=== PATIENT | male | born 1965 | race Caucasian/White ===

== ENCOUNTER 2018-04-19 20:35 | Observation (INO) | payer MEDICARE, OTHER ==
[2018-04-19 21:05] LABS: #Basophils 0.1 thou/uL (0.0-0.2); #Eosinphils 0.1 thou/uL (0.0-0.7); #Lymphocytes 2.2 thou/uL (1.20-3.40); #Monocytes 0.3 thou/uL (0.11-0.59); %Basophils 1.2 % (0.0-1.0); %Eosinophils 1.9 % (0.0-10.0); %Lymphocytes 28.7 % (21.0-51.0); %Monocytes 4.4 % (0.0-10.0); %Neutrophils 63.9 % (42.0-75.0); Hemoglobin 15.5 g/dL (14.0-18.0); Mean Corpuscular HGB CONC 33.8 g/dL (32.0-36.0); Mean Corpuscular Hemoglobin 29.6 pg (27.0-31.0); Mean Corpuscular Volume 87.5 fl (80.0-94.0); Mean Platelet Volume 6.3 fL (7.4-10.4); Platelet Count 286 thou/uL (130-400); RBC Distribution Width 12.8 % (11.5-14.5); Red Blood Cell (RBC) Count 5.24 mill/uL (4.70-6.10); White Blood Cell (WBC) Count 7.8 thou/uL (4.8-10.8)
[2018-04-19 21:12] LABS: PTT 25.5 SEC (22.9-36.1); Prothrombin Time 13.1 SEC (12.0-14.7)
[2018-04-19] MEDS ORDERED: Multivitamins, Adult 10 ML, Thiamine HCl 100 MG, Folic Acid 1 MG in Dextrose 5 %-0.45 %... IV SCH (21:15)
[2018-04-19 21:29] LABS: ALT (SGPT) 60 U/L (8-55); AST (SGOT) 54 U/L (5-34); Albumin 4.5 g/dL (3.5-5.0); Alkaline Phosphatase 62 U/L (40-150); Anion Gap 27 mmol/L (10-20); BUN (Urea Nitrogen) Less than 4 mg/dL (8.4-25.7); Bilirubin, Total 1.1 mg/dL (0.2-1.2); CK (CPK) 412 U/L (30-200); Calc. Creatinine Clearance 0 mL/min (70-130); Calcium 9.1 mg/dL (7.8-10.44); Carbon Dioxide 15 mmol/L (22-29); Chloride 91 mmol/L (98-107); Estimated GFR-MDRD Greater than 90; Globulin 3.2 g/dL (2.4-3.5); Glucose 148 mg/dL (70-105); Potassium 3.3 mmol/L (3.5-5.1); Protein, Total 7.7 g/dL (6.0-8.3); Sodium 130 mmol/L (136-145)
[2018-04-19 21:30] LABS: CKMB 3.7 ng/mL (0-6.6); Troponin I Less than 0.010 ng/mL (< 0.028)
--- NOTE | 2018-04-19 21:36 | RAD ---
CHEST ONE VIEW: 04/19/18 COMPARISON: 05/26/13. HISTORY: Pain. FINDINGS: Normal cardiac silhouette. Lungs and pleural spaces are clear. No pneumothorax or osseous abnormaliti es. IMPRESSION: No acute cardiopulmonary process. POS: [facility]
[2018-04-19] MEDS ORDERED: Pantoprazole 40 MG VIAL ONE (22:51)
[2018-04-19] MEDS ORDERED: Metoprolol Tartrate 5 MG/5 ML VIAL ONE ×2 (22:51)
[2018-04-19 23:02] LABS: Magnesium 1.4 mg/dL (1.6-2.6); Phosphorus 2.8 mg/dL (2.3-4.7)
[2018-04-19] MEDS ORDERED: Magnesium Sulfate 4 GM in Sodium Chloride 0.9% 250 ML 250 ML IVPB SCH (23:15)
[2018-04-20] MEDS ORDERED: Acetaminophen 325 MG TAB PO PRN ×2 (00:11→01:32)
[2018-04-20] MEDS ORDERED: Ondansetron HCl/PF 4 MG/2 ML Vial IVP PRN ×2 (00:11→01:32)
[2018-04-20] MEDS ORDERED: Ondansetron ODT 4 MG TAB SL PRN (00:11)
[2018-04-20] MEDS ORDERED: Sodium Chloride 0.9% 1,000 ML IV SCH (00:15)
[2018-04-20 00:27] VITALS: BMI 33.1
[2018-04-20 01:00] LABS: Lactic Acid 3.8 mmol/L (0.5-2.2)
[2018-04-20 01:08] LABS: Troponin I Less than 0.010 ng/mL (< 0.028)
[2018-04-20] MEDS ORDERED: cloNIDine 0.1 MG TAB PO PRN (01:29)
[2018-04-20] MEDS ORDERED: Nitroglycerin 0.4 MG TAB (25 Tab Bottle) PO PRN (01:32)
[2018-04-20] MEDS ORDERED: Milk Of Magnesia 30 ML UDCUP PO PRN (01:32)
[2018-04-20] MEDS ORDERED: Senokot 8.6 MG TAB PO PRN (01:32)
[2018-04-20] MEDS ORDERED: Ondansetron ODT 4 MG TAB PO PRN (01:32)
[2018-04-20] MEDS ORDERED: Calcium Carbonate 500 MG ChewTAB PO PRN (01:32)
[2018-04-20] MEDS ORDERED: Mag-Al 1200 mg/1200 mg/30 ML UDCUP PO PRN (01:32)
[2018-04-20] MEDS ORDERED: cloNIDine 0.1 MG TAB PO SCH (01:45)
--- NOTE | 2018-04-20 01:51 | HP ---
DATE OF ADMISSION: 04/19/2018 The patient was seen and examined on 04/19/2018. CHIEF COMPLAINT: Chest discomfort. HISTORY OF PRESENT ILLNESS: Patient is a 53-year-old male with chronic alcoholism, hypertension, hyp erlipidemia, and diabetes mellitus type 2, presented to the emergency room with chest discomfort that started earlier today. He also felt nauseous and had vomiting prior to the onset. 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 He vomited all the beer. He also had palpitations. His chest discomfort was dull in nature, mainly in the lower chest/epigastric area, moderate in intensity without any aggravating or relieving factor. He denies any lightheadedness or passing out. No rece nt immobilization, travel, fever, chills, cough, shortness of breath reported. No similar episodes i n the past. In the emergency room, his initial vital signs showed temperature 99.3 with respiration 21, pulse rat e of 141 with a blood pressure of 201/133 with O2 saturation 97% on room air. His EKG showed sinus t achycardia with heart rate of [address]-T wave changes. He received IV Protonix, 10 mg IV Lopressor, aspirin, IV fluids, and banana bag in the emergency room. His current blood pressu re is 185/89. Please note that patient has hearing and talking difficulty. History was obtained wit h the help of a sewage plant operator. PAST MEDICAL HISTORY: 1. Hypertension. 2. Diabetes mellitus type 2. 3. Hyperlipidemia. PAST SURGICAL HISTORY: Reviewed with the patient and none. ALLERGIES: Patient denies any drug allergies. CURRENT HOME MEDICATIONS: 1. Lisinopril 20 mg daily. 2. Zocor 20 mg at bedtime. 3. Metformin 1000 mg twice a day. SOCIAL HISTORY: The patient is a daily drinker as discussed above. He also smokes up to half pack a day. No drug use. FAMILY HISTORY: Negative for premature coronary artery disease. REVIEW OF SYSTEMS: The following complete review of systems was negative, unless otherwise mentioned in the HPI or below: Constitutional: Weight loss or gain, ability to conduct usual activities. Sk in: Rash, itching. Eyes: Double vision, pain. ENT/Mouth: Nose bleeding, neck stiffness, pain, te nderness. Cardiovascular: Palpitations, dyspnea on exertion, orthopnea. Respiratory: Shortness of breath, wheezing, cough, hemoptysis, fever or night sweats. Gastrointestinal: Poor appetite, abdom inal pain, heartburn, nausea, vomiting, constipation, or diarrhea. Genitourinary: Urgency, frequenc y, dysuria, nocturia. Musculoskeletal: Pain, swelling. Neurologic/Psychiatric: Anxiety, depressio n. Allergy/Immunologic: Skin rash, bleeding tendency. PHYSICAL EXAMINATION: VITAL SIGNS: As discussed above. HEENT: Head atraumatic, normocephalic. Sclerae are anicteric. Dry mucous membranes. No oral lesio n. NECK: Supple. No JVD appreciated. No carotid bruit. LUNGS: Clear to auscultation bilaterally. No wheezing, rales, or rhonchi. HEART: S1, S2 present, tachycardic, 2/6 systolic murmur over the mitral area. No heaves or pulsatio n. ABDOMEN: Soft, mild epigastric tenderness. No rebound, guarding, no costovertebral angle tenderness . EXTREMITIES: No edema or calf tenderness. NEUROLOGIC: Grossly nonfocal, moves all four extremities. PSYCHIATRY: Alert, awake, oriented x3. SKIN: Warm and dry. LYMPH NODES: No palpable lymph nodes in the neck. PERIPHERAL VASCULAR: Radial pulses palpable bilaterally. MUSCULOSKELETAL: No joint swelling or tenderness. SKIN: Warm and dry. LYMPH NODES: No palpable lymph nodes in the neck. LABORATORY FINDINGS: CBC showed WBC 7.8 with hemoglobin 15.5, hematocrit 45.8, platelet of 286,000. PT, INR, PTT normal range. Chemistries showed sodium 130, potassium 3.3, magnesium 1.4 with anion g ap of 27, bicarbonate of 15, creatinine 0.76. AST of 54, ALT 60. CK was 412. IMAGING: Chest x-ray by my review was negative for infiltrate. EKG by my review as discussed above. IMPRESSION: 1. Nausea, vomiting with chest discomfort. His symptoms are probably consistent with gastritis from daily alcohol use. We will also rule out acute coronary syndrome. We will continue IV PPIs. Patie nt will be monitored overnight. 2. Metabolic acidosis, probably secondary to dehydration with suspected starvation ketosis. We will also rule out lactic acidosis. We will check lactic acid, ketones and start him on IV fluids. We w ill recheck labs in a.m. 3. Chronic alcoholism. Patient was extensively counseled. 4. Electrolyte abnormalities. The patient has hyponatremia, hypokalemia, and hypomagnesemia. This will be replaced. 5. Abnormal liver function tests, probably secondary to daily alcohol use. 6. Sinus tachycardia, probably secondary to dehydration. Alcohol withdrawal is also a possibility. 7. Obesity with a body mass index of 33.1. 8. Hypertension with hypertensive urgency. The patient will be started on beta-blockers for sinus t achycardia. We will hold lisinopril due to dehydration. 9. Hyperlipidemia. We will hold statins due to abnormal liver function tests. 10. Diabetes mellitus type 2. We will hold metformin due to metabolic acidosis. We will start him on sliding scale. Plan of care was discussed with the patient in detail. He stated understanding.
[2018-04-20] MEDS: Lorazepam 1 MG TAB PO PRN ×3 (02:19→23:52)
[2018-04-20] MEDS ORDERED: Dextrose 50% Abboject 50 ML SYRINGE SLOW IVP PRN (04:33)
[2018-04-20] MEDS ORDERED: Insulin Regular 300 UNITS/3 ML VIAL SC PRN (04:33)
[2018-04-20] MEDS ORDERED: Dextrose 5% in Water 1,000 ML IV PRN (04:33)
[2018-04-20] MEDS: Insulin Regular 300 UNITS/3 ML VIAL SC PRN ×2 (06:08→18:00)
[2018-04-20] MEDS: D5 1/2 NS w/20 mEq KCL 1,000 ML IV SCH ×3 (06:10→14:51)
[2018-04-20] MEDS: Multivit, Therapeutic 1 TAB PO SCH (07:59)
[2018-04-20] MEDS: Aspirin 81 mg Enteric Coated Tablet PO SCH (07:59)
[2018-04-20] MEDS ORDERED: Aspirin 325 MG TAB PO SCH (08:00)
[2018-04-20] MEDS: Folic Acid 1 MG TAB PO SCH (08:00)
[2018-04-20] MEDS: Metoprolol Tartrate 25 MG TAB PO SCH ×2 (08:00→20:14)
[2018-04-20] MEDS: Pantoprazole 40 MG VIAL IVP SCH ×2 (08:00→20:16)
[2018-04-20] MEDS: cloNIDine 0.1 MG TAB PO SCH ×2 (08:00→20:14)
[2018-04-20 10:27] LABS: Lactic Acid 1.6 mmol/L (0.5-2.2)
[2018-04-20 10:33] LABS: Troponin I Less than 0.010 ng/mL (< 0.028)
[2018-04-20 10:38] LABS: #Eosinphils 0.2 thou/uL (0.0-0.7); #Lymphocytes 0.7 thou/uL (1.20-3.40); #Monocytes 0.2 thou/uL (0.11-0.59); #Neutrophils 3.2 thou/uL (1.40-6.50); %Basophils 0.3 % (0.0-1.0); %Eosinophils 4.4 % (0.0-10.0); %Lymphocytes 17.2 % (21.0-51.0); %Monocytes 4.6 % (0.0-10.0); %Neutrophils 73.5 % (42.0-75.0); Hemoglobin 14.6 g/dL (14.0-18.0); Mean Corpuscular HGB CONC 34.2 g/dL (32.0-36.0); Mean Corpuscular Hemoglobin 30.1 pg (27.0-31.0); Mean Platelet Volume 7.3 fL (7.4-10.4); Platelet Count 180 thou/uL (130-400); Red Blood Cell (RBC) Count 4.86 mill/uL (4.70-6.10); White Blood Cell (WBC) Count 4.3 thou/uL (4.8-10.8)
[2018-04-20 10:47] LABS: ALT (SGPT) 50 U/L (8-55); AST (SGOT) 43 U/L (5-34); Albumin 3.9 g/dL (3.5-5.0); Alkaline Phosphatase 52 U/L (40-150); Anion Gap 15 mmol/L (10-20); BUN (Urea Nitrogen) 4 mg/dL (8.4-25.7); CK (CPK) 350 U/L (30-200); Calc. Creatinine Clearance 163 mL/min (70-130); Carbon Dioxide 24 mmol/L (22-29); Chloride 97 mmol/L (98-107); Estimated GFR-MDRD Greater than 90; Globulin 3.1 g/dL (2.4-3.5); Glucose 258 mg/dL (70-105); Magnesium 2.9 mg/dL (1.6-2.6); Potassium 4.1 mmol/L (3.5-5.1); Sodium 132 mmol/L (136-145)
[2018-04-20] MEDS ORDERED: Lorazepam 0.5 MG TAB PO SCH (13:30)
[2018-04-20] MEDS ORDERED: ADENOSINE 60 MG/20 ML VIAL ONE (15:53)
--- NOTE | 2018-04-20 19:06 | NM ---
NUCLEAR MEDICINE CARDIAC STRESS TEST WITH EJECTION FRACTION 04/20/18 HISTORY: Chest pain. Palpitations. COMPARISON: Nuclear medicine stress test 2012. TECHNIQUE: Stress and rest performed after the intravenous administration of 28 and 9.5 millicuries technetium 9 9m Sestamibi, respectively. No infarct or ischemia. Normal wall motion. Calculated ejection fraction at 61%. IMPRESSION: Normal exam. POS: DANIELLA
[2018-04-21] MEDS: D5 1/2 NS w/20 mEq KCL 1,000 ML IV SCH ×2 (02:08→11:01)
[2018-04-21] MEDS: Insulin Regular 300 UNITS/3 ML VIAL SC PRN (05:03)
[2018-04-21] MEDS: Multivit, Therapeutic 1 TAB PO SCH (08:16)
[2018-04-21] MEDS: Metoprolol Tartrate 25 MG TAB PO SCH (08:16)
[2018-04-21] MEDS: Folic Acid 1 MG TAB PO SCH (08:16)
[2018-04-21] MEDS: Pantoprazole 40 MG VIAL IVP SCH (08:16)
[2018-04-21] MEDS: cloNIDine 0.1 MG TAB PO SCH (08:16)
[2018-04-21] MEDS: Aspirin 81 mg Enteric Coated Tablet PO SCH (08:16)
[2018-04-21 12:01] VITALS: BP 149/84; TEMP 98.5
--- NOTE | 2018-04-21 17:31 | DIS ---
DATE OF ADMISSION: 04/19/2018 DATE OF DISCHARGE: 04/21/2018 PRIMARY CARE PROVIDER: Jeff Lyn M.D. DISCHARGE DIAGNOSES: 1. Chest pain. 2. Hyponatremia. 3. Hypokalemia. 4. Hypomagnesemia. 5. Abnormal liver function tests. 6. Lactic acidosis. 7. Likely starvation ketoacidosis. 8. Rhabdomyolysis. CONDITION OF PATIENT ON THE DAY OF DISCHARGE: Stable. I assessed Mr. Ariza on the day of discharg e. He has no complaints. Vital signs are stable. S1 and S2 are heard, regular. Lungs are clear to auscultation bilaterally. DISCHARGE MEDICATIONS: Folic acid 1 mg daily, lisinopril 20 mg daily, metformin 1000 mg 2 times a da y, multivitamins 1 tablet daily, Zoloft 100 mg daily, Zocor 20 mg at bedtime, and thiamine 100 mg magdaleno ly. HOSPITAL COURSE: Mr. Ariza is a pleasant 53-year-old gentleman who was admitted to [facility] on observation status on 04/20/2018 for chest pain. He was also found to have mul tiple metabolic and electrolyte abnormalities. The abnormalities improved with intravenous hydration . He had a nuclear stress test, which was normal, with left ventricular ejection fraction of 61%. H e also had a normal D-dimer. His chest pain resolved and he had no recurrence. He is being discharged home in a stable condition. He had isolated transaminitis, which was likely secondary to rhabdomyolysis, which improved with hydr ation. Lactic acidosis, resolved with hydration. Hypokalemia, also resolved with replacement. Hypo magnesemia, resolved with magnesium replacement. His sodium improved to 132 on 04/20/2018 following intravenous fluids. Many thanks for allowing me to participate in your patient's care. Please feel free to contact me wi th any questions or concerns. DISCHARGE DESTINATION: Home.
== END 2018-04-21 12:56 | disposition home or self-care (01) ==
LOC: ERS 20:35 → 2SW 22:38
PROVIDERS: ADMIT Internal Medicine; ATTEND Internal Medicine
DX: R07.89 Other chest pain (principal); I10 Essential (primary) hypertension; E11.9 Type 2 diabetes mellitus without complications; E78.5 Hyperlipidemia, unspecified; F10.10 Alcohol abuse, uncomplicated; F17.210 Nicotine dependence, cigarettes, uncomplicated; R11.2 Nausea with vomiting, unspecified; E87.1 Hypo-osmolality and hyponatremia; E87.6 Hypokalemia; E83.42 Hypomagnesemia; I16.0 Hypertensive urgency; R94.5 Abnormal results of liver function studies; M62.82 Rhabdomyolysis; E87.2 Acidosis; E66.9 Obesity, unspecified; Z68.33 Body mass index [BMI] 33.0-33.9, adult; Z79.84 Long term (current) use of oral hypoglycemic drugs; Z79.899 Other long term (current) drug therapy
CPT/HCPCS: 71045; 78452; 80053; 82010; 82550 ×2; 82553; 82962 ×2; 83605; 83690; 83735 ×2; 83880; 84100; 84484 ×2; 85025; 85379; 85610; 85730; 93005; 93017; 94760 ×2; 96361 ×2; 96365; 96366 ×2; 96375; 96376 ×2; 97139 ×2; 99285; A9500; G0378; 36415; 36416; 84443; C9113; J0153; J1815; J3411; J3475; J7042; J7050

== ENCOUNTER 2018-04-23 08:22 | Emergency (ER) | payer MEDICARE, OTHER ==
[2018-04-23 09:19] LABS: #Eosinphils 0.1 thou/uL (0.0-0.7); #Lymphocytes 0.7 thou/uL (1.20-3.40); #Monocytes 0.3 thou/uL (0.11-0.59); #Neutrophils 3.9 thou/uL (1.40-6.50); %Basophils 0.9 % (0.0-1.0); %Lymphocytes 13.2 % (21.0-51.0); %Monocytes 5.9 % (0.0-10.0); Hemoglobin 15.8 g/dL (14.0-18.0); Mean Corpuscular HGB CONC 35.1 g/dL (32.0-36.0); Mean Corpuscular Hemoglobin 30.9 pg (27.0-31.0); Mean Corpuscular Volume 87.9 fl (80.0-94.0); Mean Platelet Volume 6.8 fL (7.4-10.4); Platelet Count 166 thou/uL (130-400); RBC Distribution Width 13.2 % (11.5-14.5); Red Blood Cell (RBC) Count 5.12 mill/uL (4.70-6.10)
[2018-04-23 09:42] LABS: CKMB 1.3 ng/mL (0-6.6); Troponin I Less than 0.010 ng/mL (< 0.028)
[2018-04-23 10:13] LABS: ALT (SGPT) 77 U/L (8-55); AST (SGOT) 67 U/L (5-34); Albumin 4.4 g/dL (3.5-5.0); Alkaline Phosphatase 59 U/L (40-150); Anion Gap 17 mmol/L (10-20); BUN (Urea Nitrogen) 6 mg/dL (8.4-25.7); Bilirubin, Total 0.9 mg/dL (0.2-1.2); Calc. Creatinine Clearance 0 mL/min (70-130); Calcium 9.1 mg/dL (7.8-10.44); Carbon Dioxide 21 mmol/L (22-29); Chloride 101 mmol/L (98-107); Estimated GFR-MDRD Greater than 90; Globulin 3.4 g/dL (2.4-3.5); Glucose 211 mg/dL (70-105); Potassium 3.6 mmol/L (3.5-5.1); Protein, Total 7.8 g/dL (6.0-8.3); Sodium 135 mmol/L (136-145)
--- NOTE | 2018-04-23 10:32 | RAD ---
PORTABLE CHEST 1 VIEW: Date: 04/23/18 Time: 1000 hours HISTORY: Palpitations. Dizziness. FINDINGS: Comparison made with exam of 04/19/18. The heart size is normal. The lungs are expanded without focal areas of consolidation, pneumothorax, jimmy pulmonary edema, or pleural effusions. IMPRESSION: No radiographic evidence of acute cardiopulmonary process. POS: [facility]
== END 2018-04-23 11:05 | disposition home or self-care (01) ==
LOC: ERS 08:22
DX: I49.3 Ventricular premature depolarization (principal); G47.00 Insomnia, unspecified; E11.9 Type 2 diabetes mellitus without complications; E78.5 Hyperlipidemia, unspecified; I10 Essential (primary) hypertension; F17.210 Nicotine dependence, cigarettes, uncomplicated; Z79.899 Other long term (current) drug therapy; Z79.84 Long term (current) use of oral hypoglycemic drugs
CPT/HCPCS: 36415; 71045; 80053; 82553; 84484; 85025; 93005

== ENCOUNTER 2018-06-12 00:10 | Inpatient (IN) | payer MEDICARE, OTHER ==
[2018-06-12] MEDS ORDERED: Ondansetron HCl/PF 4 MG/2 ML Vial ONE (00:50)
[2018-06-12 01:16] LABS: #Eosinphils 0.1 thou/uL (0.0-0.7); #Lymphocytes 1.1 thou/uL (1.20-3.40); #Monocytes 0.2 thou/uL (0.11-0.59); #Neutrophils 6.9 thou/uL (1.40-6.50); %Basophils 0.5 % (0.0-1.0); %Eosinophils 0.7 % (0.0-10.0); %Lymphocytes 13.3 % (21.0-51.0); %Monocytes 2.3 % (0.0-10.0); %Neutrophils 83.2 % (42.0-75.0); Hemoglobin 14.5 g/dL (14.0-18.0); Mean Corpuscular HGB CONC 35.1 g/dL (32.0-36.0); Mean Corpuscular Hemoglobin 30.8 pg (27.0-31.0); Mean Corpuscular Volume 87.6 fL (78.0-98.0); Mean Platelet Volume 6.1 fL (7.4-10.4); Platelet Count 269 thou/uL (130-400); RBC Distribution Width 13.6 % (11.5-14.5); White Blood Cell (WBC) Count 8.3 thou/uL (4.8-10.8)
[2018-06-12 01:33] LABS: ALT (SGPT) 76 U/L (8-55); AST (SGOT) 86 U/L (5-34); Albumin 4.4 g/dL (3.5-5.0); Alcohol 168 mg/dL (Less than 10); Alkaline Phosphatase 61 U/L (40-150); Anion Gap 22 mmol/L (10-20); BUN (Urea Nitrogen) Less than 4 mg/dL (8.4-25.7); Calc. Creatinine Clearance 0 mL/min (70-130); Calcium 8.8 mg/dL (7.8-10.44); Carbon Dioxide 19 mmol/L (22-29); Chloride 99 mmol/L (98-107); Estimated GFR-MDRD Greater than 90; Glucose 156 mg/dL (70-105); Lipase 23 U/L (8-78); Magnesium 1.4 mg/dL (1.6-2.6); Potassium 3.2 mmol/L (3.5-5.1); Protein, Total 7.4 g/dL (6.0-8.3); Sodium 137 mmol/L (136-145)
[2018-06-12 01:34] LABS: PTT 30.2 SEC (22.9-36.1)
[2018-06-12 01:40] LABS: INR-International Normal Ratio 1.1; Prothrombin Time 14.1 SEC (12.0-14.7)
[2018-06-12] MEDS ORDERED: Lorazepam 2 MG/ML VIAL ONE ×2 (01:47→05:27)
[2018-06-12 01:51] LABS: Bilirubin Negative (Negative); Blood, Urine Negative (Negative); Clarity CLEAR (Clear); Glucose, Urine (Dipstick) Negative (Negative); Leukocyte Negative (Negative); Nitrite Negative (Negative); Protein, Urine (Dipstick) Trace mg/dL (Neg-Trace); Specific Gravity, Urine 1.006 (1.002-1.036); Urobilinogen 0.2 mg/dL (0.2-1.0); pH, Urine 5.5 (5.0-9.0)
[2018-06-12] MEDS ORDERED: Potassium Chloride 40 MEQ in Sodium Chloride 0.9% 250 ML 250 ML IVPB SCH (02:00)
[2018-06-12] MEDS ORDERED: Piperacillin/Tazobactam 4.5 GM VIAL ONE (02:08)
[2018-06-12] MEDS ORDERED: Pantoprazole 80 MG, Admixture Fee 1 EACH in Sodium Chloride 0.9% 100 ML IVP SCH (04:00)
[2018-06-12 04:22] LABS: Lactic Acid 4.4 mmol/L (0.5-2.2)
[2018-06-12] MEDS ORDERED: Ondansetron HCl/PF 4 MG/2 ML Vial IVP PRN (06:25)
[2018-06-12] MEDS ORDERED: Ondansetron ODT 4 MG TAB SL PRN (06:25)
[2018-06-12] MEDS ORDERED: Magnesium Sulfate 2 GM in Sodium Chloride 0.9% 100 ML IVPB SCH (06:45)
[2018-06-12] MEDS ORDERED: Octreotide Acetate 50 MCG/ML AMP SLOW IVP SCH (06:45)
[2018-06-12 06:46] VITALS: BMI 33.3
[2018-06-12 07:11] LABS: INR-International Normal Ratio 1.1; Prothrombin Time 14.1 SEC (12.0-14.7)
[2018-06-12] MEDS: Dextrose 5 %-0.45 % NaCl 1,000 ML IV SCH ×2 (07:22→21:35)
[2018-06-12] MEDS ORDERED: Folic Acid 1 MG TAB PO SCH (09:00)
[2018-06-12] MEDS ORDERED: Non-Formulary Item 1 EACH (Sertraline Hcl [Zoloft] 100 MG) PO SCH (09:00)
[2018-06-12] MEDS ORDERED: Multivit, Therapeutic 1 TAB PO SCH (09:00)
--- NOTE | 2018-06-12 09:19 | RAD ---
RADIOGRAPH CHEST 1 VIEW: HISTORY: A 53-year-old male with cardiac arrhythmia, nausea, and vomiting. FINDINGS: There are no air space densities, pulmonary edema, pneumothorax, or cardiomegaly. The lateral costop hrenic angles are sharp. IMPRESSION: No acute cardiopulmonary findings. rosmery [] POS: DANIELAL
[2018-06-12] MEDS ORDERED: hydrALAZINE 20 MG/ML VIAL SLOW IVP SCH (10:15)
[2018-06-12] MEDS: Rosuvastatin 10 MG TAB PO SCH (10:18)
[2018-06-12] MEDS: Lisinopril 20 MG TAB PO SCH ×2 (10:18→12:16)
[2018-06-12] MEDS ORDERED: HumaLOG 300 UNITS/3 ML VIAL SC PRN (12:43)
[2018-06-12] MEDS ORDERED: Bisacodyl 5 MG TAB PO PRN (12:43)
[2018-06-12] MEDS ORDERED: Dextrose 5% in Water 1,000 ML IV PRN (12:43)
[2018-06-12] MEDS ORDERED: Dextrose 50% Abboject 50 ML SYRINGE SLOW IVP PRN (12:43)
--- NOTE | 2018-06-12 13:10 | HP ---
PRIMARY CARE PROVIDER: Jeff Lyn MD CHIEF COMPLAINT: Irregular heartbeat. HISTORY OF PRESENT ILLNESS: Mr. Ariza is a pleasant 53-year-old gentleman, who was seen at [facility] on 06/12/2018. Please note, patient is deaf. History was obtained through review of medical records and by communic ating with the patient in writing. The patient called EMS because he felt that his heart was beating irregularly. He started panicking. He reports having similar symptoms in the past. He also reports feeling nauseous. He reports vomi ting. Vomitus had black spots. REVIEW OF SYSTEMS: All other systems reviewed and found to be negative. PAST MEDICAL HISTORY: Alcohol abuse; hypertension; diabetes mellitus, type 2, and dyslipidemia. PAST SURGICAL HISTORY: None. FAMILY HISTORY: Negative for premature coronary artery disease. SOCIAL HISTORY: The patient drinks 12-pack daily. He smokes 1 pack of cigarettes a day. He denies any recreational drug use. He lives alone. PSYCHIATRIC HISTORY: Depression. ALLERGIES: No known drug allergies. CURRENT MEDICATIONS: Include Crestor 10 mg daily, metformin 1000 mg 2 times a day, sertraline 100 mg daily, aspirin 81 mg daily, lisinopril 20 mg daily. PHYSICAL EXAMINATION: GENERAL: Mr. Ariza is awake and alert, not in acute distress. VITAL SIGNS: He is afebrile. Pulse is 131. Blood pressure is 188/103. He is saturating 95% on marie m air while breathing 20 times a minute. He is obese, with a BMI of 33.4. EYES: No scleral icterus. No conjunctival pallor. ENT: Moist mucosal membranes, no oropharyngeal erythema or exudates. NECK: Supple, nontender, trachea is midline. RESPIRATORY: Accessory muscles of breathing are not active. Chest wall movements are symmetric bila terally. LUNGS: Clear to auscultation without wheeze, rhonchi, or crepitations. CARDIOVASCULAR: S1 and S2 are heard, tachycardic and regular. Peripheral pulses palpable. No carot id bruit, no pericardial rub. ABDOMEN: Soft, nontender, bowel sounds are heard, no hepatomegaly, no splenomegaly. MUSCULOSKELETAL: Power is 5/5 in all 4 extremities. NEUROLOGIC: Cranial nerves II-XII intact. Deep tendon reflexes are 2+. SKIN: No rashes or subcutaneous nodules. LYMPHATIC: No cervical lymphadenopathy. PSYCHIATRIC: Normal mood, normal affect, patient is oriented to person, place, and time. LABORATORY DATA: Mr. Ariza's labs and investigations were reviewed. I reviewed his electrocardiog seble, which shows sinus tachycardia, no ST changes to suggest an acute coronary syndrome. I also revi ewed his chest x-ray, which does not show any pulmonary infiltrates. He has normal white count, norm al hemoglobin of 14.5, normal platelet count, INR 1.1, normal sodium, decreased potassium of 3.2, dec reased carbon dioxide of 19, elevated anion gap of 22, elevated lactic acid level of 4.4, trending do wn from 5.5, normal calcium, decreased magnesium of 1.4, normal total bilirubin, elevated AST of 86, elevated ALT of 76, normal lipase and normal albumin. Urinalysis is positive for trace ketones. [facility] alcohol level was 168. ASSESSMENT AND PLAN: Mr. Ariza is a pleasant 53-year-old gentleman, who was seen at [facility] on 06/12/2018. His problem list includes: 1. Palpitations: Most likely secondary to sinus tachycardia. The etiology of sinus tachycardia is unclear. He reports having his last alcoholic drink last night. We will check TSH to rule out hyper thyroidism. We will also check a D-dimer to rule out pulmonary embolism. Patient will be admitted t o telemetry monitoring. Further workup depending on the outcome. 2. Gastrointestinal bleed: It is unclear whether patient had an actual gastrointestinal bleed. We will continue him on PPI drip and consult Gastroenterology service. His hemoglobin has been stable. We will recheck his H and H. 3. Hypokalemia: Replace potassium. 4. Hypomagnesemia: Replace magnesium. 5. Chronic alcohol abuse: Start folic acid, thiamine, and multivitamins. Start ASE protocol. 6. Dyslipidemia: Continue statin. 7. Diabetes mellitus, type 2: Start Accu-Cheks and insulin sliding scale. 8. Hypertension: Monitor vital signs, titrate antihypertensives as needed. LEVEL OF RISK: High. LEVEL OF COMPLEXITY: High. Many thanks for allowing me to participate in your patient's care. Please feel free to contact me wi th any questions or concerns.
[2018-06-12 13:44] LABS: Hemoglobin 15.2 g/dL (14.0-18.0)
[2018-06-12] MEDS ORDERED: Diazepam 5 MG TAB PO PRN (15:29)
[2018-06-12] MEDS ORDERED: Diazepam 5 MG TAB PO SCH (15:30)
[2018-06-12] MEDS ORDERED: Labetalol HCl 100 MG/20 ML VIAL SLOW IVP PRN (15:32)
[2018-06-12] MEDS: Labetalol HCl 100 MG/20 ML VIAL SLOW IVP PRN (15:52)
[2018-06-12] MEDS ORDERED: Simvastatin 20 MG TAB PO SCH (21:00)
[2018-06-12] MEDS: Nicotine 21 MG PATCH TD SCH (21:35)
[2018-06-12] MEDS: Atorvastatin Calcium 10 MG TAB PO SCH (21:35)
[2018-06-12 22:28] LABS: Hemoglobin 14.5 g/dL (14.0-18.0)
[2018-06-13 03:28] LABS: #Eosinphils 0.1 thou/uL (0.0-0.7); #Lymphocytes 1.1 thou/uL (1.20-3.40); #Monocytes 0.2 thou/uL (0.11-0.59); %Basophils 0.8 % (0.0-1.0); %Eosinophils 2.7 % (0.0-10.0); %Lymphocytes 19.8 % (21.0-51.0); %Monocytes 3.9 % (0.0-10.0); %Neutrophils 72.8 % (42.0-75.0); Hemoglobin 14.6 g/dL (14.0-18.0); Mean Corpuscular HGB CONC 34.6 g/dL (32.0-36.0); Mean Corpuscular Hemoglobin 30.7 pg (27.0-31.0); Mean Corpuscular Volume 88.8 fL (78.0-98.0); Mean Platelet Volume 6.3 fL (7.4-10.4); Platelet Count 167 thou/uL (130-400); RBC Distribution Width 13.5 % (11.5-14.5); Red Blood Cell (RBC) Count 4.77 mill/uL (4.70-6.10); White Blood Cell (WBC) Count 5.4 thou/uL (4.8-10.8)
[2018-06-13 03:50] LABS: Anion Gap 14 mmol/L (10-20); BUN (Urea Nitrogen) Less than 4 mg/dL (8.4-25.7); Calc. Creatinine Clearance 165 mL/min (70-130); Calcium 8.1 mg/dL (7.8-10.44); Carbon Dioxide 29 mmol/L (22-29); Chloride 98 mmol/L (98-107); Estimated GFR-MDRD Greater than 90; Glucose 187 mg/dL (70-105); Potassium 3.1 mmol/L (3.5-5.1); Sodium 138 mmol/L (136-145)
[2018-06-13] MEDS: Diazepam 5 MG TAB PO PRN ×3 (04:16→17:58)
[2018-06-13] MEDS: Dextrose 5 %-0.45 % NaCl 1,000 ML IV SCH ×2 (04:17→11:19)
--- NOTE | 2018-06-13 08:08 | CON ---
DATE OF CONSULTATION: 06/12/2018 HISTORY OF PRESENT ILLNESS: This is a 53-year-old male who came to the ER because of palpitation and anxiety. The patient is totally deaf. Most of the history was obtained by going through the admitting history and physical. The patient apparently came to ER and gave a history of one episode of vomiting and he vomited some food, which is with some black spots. However, his blood count is very stable. He had no more vomiting since admission. He did not have any black tarry stool. . The patient has history of alcohol abuse and was drinking alcohol heavily. He also has history of hypertension, hyperlipidemia, and type 2 diabetes mellitus. The patient's blood count is very stable; however, he is tachycardic with pulse rate of 130. Now, the patient has sinus tachycardia. Blood pressure is stable. The patient has refused to have an EGD and does not want to have anything done. This was conveyed to Dr. Grzegorz Gautam. RECOMMENDATIONS: 1. Diet: As tolerated. 2. Follow up H&H. 3. Agree with PPI. Please call me back if the patient changes his mind about EGD. MTDD
[2018-06-13] MEDS: Multivit, Therapeutic 1 TAB PO SCH (09:38)
[2018-06-13] MEDS: Lisinopril 20 MG TAB PO SCH (09:38)
[2018-06-13] MEDS: Magnesium Oxide 400 MG TAB PO SCH (09:38)
[2018-06-13] MEDS: Rosuvastatin 10 MG TAB PO SCH (09:39)
[2018-06-13] MEDS: Folic Acid 1 MG TAB PO SCH (09:39)
[2018-06-13] MEDS ORDERED: Metoprolol Tartrate 25 MG TAB PO SCH (10:00)
[2018-06-13] MEDS ORDERED: Vancomycin HCl 1 GM in Premix Bag 1 BAG IVPB SCH (10:00)
[2018-06-13] MEDS: Nicotine 21 MG PATCH TD SCH (11:35)
[2018-06-13 12:28] LABS: Lactic Acid 1.9 mmol/L (0.5-2.2)
--- NOTE | 2018-06-13 18:15 | PDOC.PN ---
- Subjective Encounter Start Date: 06/13/18 Encounter Start Time: 10:20 Pt seen for followup re: bacteremia. Denies chest pain, shortness of breath, fevers or chills. No nausea or vomiting. - Objective Resuscitation Status: Resuscitation Status FULL:Full Resuscitation MAR Reviewed: Yes Vital Signs & Weight: Vital Signs (12 hours) Temp Pulse Resp BP BP Pulse Ox 06/13/18 18:00 101 H 18 163/102 H 06/13/18 16:30 90 18 172/95 H 06/13/18 16:00 99.3 F 86 16 172/95 H 183/93 H 94 L 06/13/18 12:00 174/96 H 06/13/18 11:09 98.9 F 116 H 16 174/96 H 96 06/13/18 09:38 190/113 H 06/13/18 07:42 97.6 F 115 H 20 97 06/13/18 07:40 129/87 06/13/18 07:26 97.6 F 115 H 20 129/87 97 I&O: 06/12/18 06/13/18 06/14/18 06:59 06:59 06:59 Intake Total 3624 1730 Output Total 2800 800 Balance 824 930 Result Diagrams: 06/13/18 03:07 06/13/18 03:06 Additional Labs: Accuchecks 06/13/18 06/13/18 06/13/18 16:57 10:19 05:59 POC Glucose 128 H 203 H 199 H 06/12/18 20:53 POC Glucose 192 H EKG Reviewed by me: Yes (Tele: sinus tachycardia) Phys Exam - Physical Examination Constitutional: NAD HEENT: moist MMs, sclera anicteric, oral pharynx no lesions, 2+ tonsils Neck: no nodes, no JVD, supple, full ROM Respiratory: no wheezing, no rales, no rhonchi, clear to auscultation bilateral S1, S2, tachy, reg Gastrointestinal: soft, non-tender, no distention, positive bowel sounds Neurological: moves all 4 limbs Psychiatric: normal affect, A&O x 3 Dx/Plan (1) Bacteremia Code(s): R78.81 - BACTEREMIA Status: Acute Comment: 1/2 cultures +ve, ? contaminant. Start vancomycin,follow second culture (2) Sinus tachycardia Code(s): R00.0 - TACHYCARDIA, UNSPECIFIED Status: Acute Comment: Imroving, start beta taj. TSH normal, -ve d-dimer (3) UGIB (upper gastrointestinal bleed) Code(s): K92.2 - GASTROINTESTINAL HEMORRHAGE, UNSPECIFIED Status: Acute Comment: hemoglobin stable, pt refused endoscopy (4) Hypokalemia Code(s): E87.6 - HYPOKALEMIA Status: Acute Comment: replace potassium (5) DM2 (diabetes mellitus, type 2) Status: Chronic Comment: continue accuchecks, insulin sliding scale (6) Alcohol dependence, daily use Code(s): F10.20 - ALCOHOL DEPENDENCE, UNCOMPLICATED Status: Chronic Comment : on ASE protocol, thiamine, folate and multivitamins - Plan * . Review of Systems - Review of Systems Constitutional: negative: fever, chills, sweats, weakness, malaise Respiratory: negative: Cough, Shortness of Breath, SOB with Excertion, Pleuritic Pain, Wheezing Cardiovascular: negative: chest pain, palpitations, orthopnea, paroxysmal nocturnal dyspnea, edema, light headedness Genitourinary: negative: Dysuria, Frequency, Incontinence, Hematuria, Retention Skin: negative: Rash, Lesions, [place], Bruising Neurological: negative: Weakness, Numbness, Incoordination, Change in Speech, Confusion, Seizures - Medications/Allergies Allergies/Adverse Reactions: Allergies Allergy/AdvReac Type Severity Reaction Status Date / Time No Known Allergies Allergy Verified 05/26/13 05:33 Medications: Current Medications Atorvastatin Calcium (Lipitor) 10 mg PO HS FOR[facility]LY [facility], [facility]1983 Last Admin: 06/12/18 21:35 Dose: 10 mg Bisacodyl (Dulcolax) 10 mg PO DAILYPRN PRN PRN Reason: Constipation Dextrose/Water (Dextrose 50%) 25 gm SLOW IVP PRN PRN PRN Reason: Hypoglycemia Diazepam (Valium) 5 mg PO Q4H PRN PRN Reason: FOR ASE 10 OR GREATER Last Admin: 06/13/18 17:58 Dose: 5 mg Folic Acid (Folvite) 1 mg PO DAILY FOR[facility], [facility]1983 Last Admin: 06/13/18 09:39 Dose: 1 mg Glucagon (Glucagon) 1 mg IM PRN PRN PRN Reason: Hypoglycemia Dextrose/Water (D5w) 1,000 mls @ 0 mls/hr IV .Q0M PRN; As Directed PRN Reason: Hypoglycemia Vancomycin HCl 2 gm/ Sodium (Chloride) 500 mls @ 250 mls/hr IVPB 1100,2300 FOR[facility], [facility]1983 Last Admin: 06/13/18 11:20 Dose: 500 mls Insulin Human Lispro (Humalog) 0 units SC .MILD SLIDING SCALE PRN PRN Reason: Mild Correctional Scale Labetalol HCl (Normodyne) 10 mg SLOW IVP Q4H PRN PRN Reason: SBP >170 Last Admin: 06/12/18 15:52 Dose: 10 mg Lisinopril (Zestril) 20 mg PO DAILY [facility] Last Admin: 06/13/18 09:38 Dose: 20 mg Magnesium Oxide (Magnesium Oxide) 400 mg PO DAILY [facility] Last Admin: 06/13/18 09:38 Dose: 400 mg Metoprolol Tartrate (Lopressor) 25 mg PO BID [facility] Miscellaneous Medication (Pharmacy To Dose) 1 each IVPB ASDIR [facility], [facility] Multivitamins (Theragran) 1 tab PO DAILY [facility] Last Admin: 06/13/18 09:38 Dose: 1 tab Nicotine (Nicoderm Patch) 21 mg TD Q24HR [facility] Last Admin: 06/13/18 11:35 Dose: Not Given Rosuvastatin Calcium (Crestor) 10 mg PO DAILY [facility] Last Admin: 06/13/18 09:39 Dose: 10 mg Sertraline HCl (Zoloft) 100 mg PO DAILY [facility] Last Admin: 06/13/18 09:38 Dose: 100 mg Sodium Chloride (Flush - Normal Saline) 10 ml IVF Q12HR [facility] Last Admin: 06/13/18 09:39 Dose: 10 ml Sodium Chloride (Flush - Normal Saline) 10 ml IVF PRN PRN PRN Reason: Saline Flush Thiamine HCl (Thiamine) 100 mg PO DAILY [facility] Last Admin: 06/13/18 09:38 Dose: 100 mg
[2018-06-13] MEDS ORDERED: hydrALAZINE 20 MG/ML VIAL SLOW IVP PRN (18:20)
[2018-06-13] MEDS: Potassium Chloride 20 MEQ TAB PO SCH ×2 (19:15→23:18)
[2018-06-13] MEDS: Metoprolol Tartrate 25 MG TAB PO SCH (20:53)
[2018-06-13] MEDS: Atorvastatin Calcium 10 MG TAB PO SCH (20:53)
[2018-06-14] MEDS: Labetalol HCl 100 MG/20 ML VIAL SLOW IVP PRN (05:02)
[2018-06-14 05:13] LABS: Anion Gap 14 mmol/L (10-20); BUN (Urea Nitrogen) 4 mg/dL (8.4-25.7); Calc. Creatinine Clearance 142 mL/min (70-130); Calcium 7.8 mg/dL (7.8-10.44); Carbon Dioxide 21 mmol/L (22-29); Chloride 107 mmol/L (98-107); Estimated GFR-MDRD Greater than 90; Glucose 139 mg/dL (70-105); Potassium 3.4 mmol/L (3.5-5.1); Sodium 139 mmol/L (136-145)
[2018-06-14] MEDS: Metoprolol Tartrate 25 MG TAB PO SCH (10:06)
[2018-06-14] MEDS: Lisinopril 20 MG TAB PO SCH (10:06)
[2018-06-14] MEDS: Rosuvastatin 10 MG TAB PO SCH (10:06)
[2018-06-14] MEDS: Magnesium Oxide 400 MG TAB PO SCH (10:06)
[2018-06-14] MEDS: Folic Acid 1 MG TAB PO SCH (10:07)
[2018-06-14] MEDS: Multivit, Therapeutic 1 TAB PO SCH (10:07)
[2018-06-14] MEDS: Nicotine 21 MG PATCH TD SCH (10:17)
[2018-06-14] MEDS ORDERED: Potassium Chloride 20 MEQ TAB PO SCH (10:30)
[2018-06-14] MEDS ORDERED: Amlodipine 5 MG TAB PO SCH (12:00)
[2018-06-14 12:16] LABS: #Eosinphils 0.2 thou/uL (0.0-0.7); #Lymphocytes 0.6 thou/uL (1.20-3.40); #Monocytes 0.3 thou/uL (0.11-0.59); #Neutrophils 5.1 thou/uL (1.40-6.50); %Basophils 0.1 % (0.0-1.0); %Eosinophils 3.9 % (0.0-10.0); %Lymphocytes 10.3 % (21.0-51.0); %Monocytes 4.6 % (0.0-10.0); %Neutrophils 81.1 % (42.0-75.0); Hemoglobin 14.4 g/dL (14.0-18.0); Mean Corpuscular HGB CONC 34.6 g/dL (32.0-36.0); Mean Corpuscular Hemoglobin 31.4 pg (27.0-31.0); Mean Corpuscular Volume 90.7 fL (78.0-98.0); Mean Platelet Volume 6.7 fL (7.4-10.4); Platelet Count 142 thou/uL (130-400); RBC Distribution Width 13.6 % (11.5-14.5); Red Blood Cell (RBC) Count 4.58 mill/uL (4.70-6.10); White Blood Cell (WBC) Count 6.3 thou/uL (4.8-10.8)
[2018-06-14 12:19] VITALS: BP 176/89; TEMP 97.9
--- NOTE | 2018-06-14 21:45 | DIS ---
DATE OF ADMISSION: 06/12/2018 DATE OF DISCHAR06/14/2018 DISCHARGE DIAGNOSIS: 1. Upper gastrointestinal bleed. 2. Bacteremia with coagulase negative Staphylococcus, likely contaminant. 3. Urine culture positive for beta hemolytic Streptococcus. 4. Positive stool occult blood test. 5. Hypertension. 6. Sinus tachycardia. CONDITION OF PATIENT ON THE DAY OF DISCHARGE: Stable. I assessed Mr. Ariza on the day of discharg e. He denies any chest pain or shortness of breath. PHYSICAL EXAMINATION: VITAL SIGNS: Stable. HEART: S1 and S2 are heard, regular. LUNGS: Clear to auscultation bilaterally. DISCHARGE MEDICATIONS: Amlodipine 5 mg daily, metoprolol tartrate 25 mg 2 times a day, aspirin 81 mg daily, folic acid 1 mg daily, lisinopril 20 mg daily, metformin 1000 mg 2 times a day, multivitamins 1 tablet daily, Crestor 10 mg daily, Zoloft 100 mg daily, Zocor 20 mg at bedtime, and thiamine 100 m g daily. HOSPITAL COURSE: Mr. Ariza is a pleasant 53-year-old gentleman who was admitted to [facility] on 06/12/2018, after he presented to the emergency room complaining of nausea, vom iting, with black flecks in the vomitus. He had a positive fecal occult blood test. He was seen by Gastroenterology Service, who recommended scope studies. Patient did not wish to have any scope stud ies. His hemoglobin was stable. He also had 1/2 blood cultures that were positive for coagulase negative Staphylococcus, most likely a contaminant. He was briefly treated with vancomycin in the hospital. He did not have any urinary symptoms, but his final urine culture was positive for beta hemolytic Streptococcus. He had sinus tachycardia as well. TSH was normal. D-dimer was low. Sinus tachycardia improved afte r starting him on metoprolol. His blood pressure was high during this hospitalization, which is why he was also started on amlodipine on the day of discharge. He is advised to check his blood pressure and heart rate 3 times a day and show the readings to his primary care provider. He has also been advised to stop smoking and to avoid alcohol use. On the day of discharge, he has white count 6300, hemoglobin 14.4, platelet count 142. Sodium 139, p otassium 3.4, which is being replaced, and creatinine 0.87. Many thanks for allowing me to participate in your patient's care. Please feel free to contact me wi th any questions or concerns. At the time of this dictation, final blood cultures are pending. So far, 1/2 blood cultures is posit juanjo for coagulase negative Staphylococcus. He is advised to follow up with his primary care provider for final blood culture report. DISCHARGE DESTINATION: Home. TOTAL AMOUNT OF TIME SPENT COORDINATING THIS DISCHARGE: 32 minutes.
[2018-06-15] MEDS ORDERED: Amlodipine 5 MG TAB PO SCH (09:00)
[2018-06-15 20:10] LABS: H. pylori IgA ABS 10.8 units (0.0-8.9); H. pylori IgG ABS 0.66 (0.00-0.79); H. pylori IgM ABS Less than 9.0 units (0.0-8.9)
== END 2018-06-14 13:25 | disposition home or self-care (01) | DRG 378 ==
LOC: ERS 00:10 → ERHOLD 04:00 → IMCU/EMU 06:06 → 2SE 06-13 11:20
PROVIDERS: ADMIT Family Medicine; ATTEND Family Medicine
DX: K92.2 Gastrointestinal hemorrhage, unspecified (principal); R78.81 Bacteremia; I10 Essential (primary) hypertension; F17.210 Nicotine dependence, cigarettes, uncomplicated; E78.5 Hyperlipidemia, unspecified; E11.9 Type 2 diabetes mellitus without complications; E87.6 Hypokalemia; E83.42 Hypomagnesemia; F10.20 Alcohol dependence, uncomplicated
CPT/HCPCS: 36415; 36416; 71045; 80048; 80053; 80307; 81003; 82274; 83605; 83690; 83735; 84443; 85014; 85025; 85379; 85610; 85730; 87040; 87086; 87149; 90471; 90732; 93005; 94760; A4216; C9113; G0009; J0360; J2060; J2354; J2405; J2543; J3370; J3411; J3475; J3480; J7050

== ENCOUNTER 2018-08-26 09:09 | Emergency (ER) | payer MEDICARE, OTHER ==
[2018-08-26] MEDS ORDERED: Metoprolol Tartrate 5 MG/5 ML VIAL ONE (09:51)
[2018-08-26 10:26] LABS: #Eosinphils 0.1 thou/uL (0.0-0.7); #Monocytes 0.4 thou/uL (0.11-0.59); %Basophils 0.5 % (0.0-1.0); %Eosinophils 0.9 % (0.0-10.0); %Monocytes 5.5 % (0.0-10.0); Hemoglobin 14.7 g/dL (14.0-18.0); Mean Corpuscular HGB CONC 34.9 g/dL (32.0-36.0); Mean Corpuscular Hemoglobin 31.7 pg (27.0-31.0); Mean Corpuscular Volume 90.9 fL (78.0-98.0); Mean Platelet Volume 6.8 fL (7.4-10.4); Platelet Count 230 thou/uL (130-400); RBC Distribution Width 12.8 % (11.5-14.5); Red Blood Cell (RBC) Count 4.64 mill/uL (4.70-6.10); White Blood Cell (WBC) Count 6.5 thou/uL (4.8-10.8)
--- NOTE | 2018-08-26 10:43 | RAD ---
FRONTAL VIEW CHEST: Date: 08/26/18 COMPARISON: 06/12/18. INDICATION: Dyspnea. FINDINGS: There is stable prominence to the cardiac silhouette. There is no lobar consolidation, effusion, or d iscrete pneumothorax. Chest is otherwise similar in appearance. IMPRESSION: Stable chest. POS: SANJANA
[2018-08-26 10:49] LABS: Troponin I Less than 0.010 ng/mL (< 0.028)
[2018-08-26 10:51] LABS: ALT (SGPT) 115 U/L (8-55); AST (SGOT) 126 U/L (5-34); Albumin 4.4 g/dL (3.5-5.0); Alkaline Phosphatase 66 U/L (40-150); Anion Gap 18 mmol/L (10-20); BUN (Urea Nitrogen) 5 mg/dL (8.4-25.7); Bilirubin, Total 1.2 mg/dL (0.2-1.2); CK (CPK) 374 U/L (30-200); Calc. Creatinine Clearance 0 mL/min (70-130); Carbon Dioxide 16 mmol/L (22-29); Chloride 93 mmol/L (98-107); Estimated GFR-MDRD Greater than 90; Globulin 3.1 g/dL (2.4-3.5); Glucose 160 mg/dL (70-105); Lipase 42 U/L (8-78); Potassium 3.3 mmol/L (3.5-5.1); Protein, Total 7.5 g/dL (6.0-8.3); Sodium 124 mmol/L (136-145)
[2018-08-26 10:53] LABS: CKMB 7.6 ng/mL (0-6.6)
[2018-08-26 14:59] LABS: Lactic Acid 1.8 mmol/L (0.5-2.2)
[2018-08-27] MEDS ORDERED: Multivitamins, Adult 10 ML, Thiamine HCl 100 MG, Folic Acid 1 MG in Dextrose 5 %-0.45 %... IV SCH (09:00)
--- NOTE | 2018-08-29 13:49 | EKG ---
Test Reason : Blood Pressure : / mmHG Vent. Rate : 119 BPM Atrial Rate : 119 BPM P-R Int : 166 ms QRS Dur : 094 ms QT Int : 326 ms P-R-T Axes : 056 044 070 degrees QTc Int : 458 ms Sinus tachycardia Otherwise normal ECG Confirmed by NI MOORE, MEREDITH ([id number]), desk editor PIERRE DICK ([id number]) on 08/29/2018 1:48:31 PM Referred By: Confirmed By:MEREDITH DAN MD
== END 2018-08-26 15:16 | disposition home or self-care (01) ==
LOC: ERS 09:09
DX: E86.0 Dehydration (principal); F10.10 Alcohol abuse, uncomplicated; R00.0 Tachycardia, unspecified; E11.9 Type 2 diabetes mellitus without complications; E78.5 Hyperlipidemia, unspecified; I10 Essential (primary) hypertension; F32.9 Major depressive disorder, single episode, unspecified; F17.210 Nicotine dependence, cigarettes, uncomplicated; Z79.899 Other long term (current) drug therapy; Z91.19 Patient's noncompliance with other medical treatment and regimen; Z71.6 Tobacco abuse counseling; Z79.84 Long term (current) use of oral hypoglycemic drugs; Z79.82 Long term (current) use of aspirin
CPT/HCPCS: 36415; 71045; 80053; 82550; 82553; 83605; 83690; 83880; 84484; 85025; 85379; 87040; 93005; 96361; 96365; 96366; 96375; 99406

== ENCOUNTER 2018-10-29 10:45 | Inpatient (IN) | payer MEDICARE, OTHER ==
[2018-10-29 11:55] LABS: #Basophils 0.1 thou/uL (0.0-0.2); #Eosinphils 0.1 thou/uL (0.0-0.7); #Lymphocytes 1.8 thou/uL (1.20-3.40); #Monocytes 0.4 thou/uL (0.11-0.59); #Neutrophils 9.8 thou/uL (1.40-6.50); %Basophils 0.8 % (0.0-1.0); %Eosinophils 0.5 % (0.0-10.0); %Neutrophils 80.7 % (42.0-75.0); Hemoglobin 15.2 g/dL (14.0-18.0); Mean Corpuscular HGB CONC 34.4 g/dL (32.0-36.0); Mean Corpuscular Hemoglobin 31.4 pg (27.0-31.0); Mean Corpuscular Volume 91.1 fL (78.0-98.0); Mean Platelet Volume 6.9 fL (7.4-10.4); Platelet Count 330 thou/uL (130-400); RBC Distribution Width 13.7 % (11.5-14.5); Red Blood Cell (RBC) Count 4.84 mill/uL (4.70-6.10); White Blood Cell (WBC) Count 12.2 thou/uL (4.8-10.8)
[2018-10-29] MEDS ORDERED: Metoprolol Tartrate 5 MG/5 ML VIAL ONE ×2 (12:07→15:43)
--- NOTE | 2018-10-29 12:07 | RAD ---
CHEST 1 VIEW: Date: 10/29/18 HISTORY: Chest pain. COMPARISON: Radiograph dated 08/26/18. FINDINGS: Heart size is enlarged. No focal confluent air space consolidation, pneumothorax, or effusion. No acu te osseous abnormality. IMPRESSION: No acute intrathoracic abnormality. POS: [facility]
[2018-10-29 12:37] LABS: ALT (SGPT) 62 U/L (8-55); AST (SGOT) 70 U/L (5-34); Albumin 4.5 g/dL (3.5-5.0); Alcohol Less than 10 mg/dL (Less than 10); Alkaline Phosphatase 77 U/L (40-150); Anion Gap 24 mmol/L (10-20); BUN (Urea Nitrogen) 6 mg/dL (8.4-25.7); Bilirubin, Total 1.2 mg/dL (0.2-1.2); Calc. Creatinine Clearance 0 mL/min (70-130); Carbon Dioxide 17 mmol/L (22-29); Chloride 95 mmol/L (98-107); Estimated GFR-MDRD Greater than 90; Globulin 3.7 g/dL (2.4-3.5); Glucose 250 mg/dL (70-105); Protein, Total 8.2 g/dL (6.0-8.3); Sodium 133 mmol/L (136-145)
[2018-10-29 12:40] LABS: Magnesium 0.9 mg/dL (1.6-2.6)
[2018-10-29] MEDS ORDERED: Lorazepam 2 MG/ML VIAL ONE (14:09)
[2018-10-29] MEDS ORDERED: Magnesium 2 GM/50 ML BAG (IN WATER) ONE ×2 (14:09→17:29)
[2018-10-29] MEDS ORDERED: Potassium Chloride 20 MEQ TAB ONE (14:09)
[2018-10-29] MEDS ORDERED: Dextrose 5% in Water 1,000 ML IV PRN (16:25)
[2018-10-29] MEDS ORDERED: Dextrose 50% Abboject 50 ML SYRINGE SLOW IVP PRN (16:25)
[2018-10-29] MEDS ORDERED: Insulin Regular 300 UNITS/3 ML VIAL SC PRN ×2 (16:25)
[2018-10-29] MEDS ORDERED: Lorazepam 1 MG TAB PO PRN (16:26)
[2018-10-29] MEDS ORDERED: Lorazepam 1 MG TAB ONE (16:56)
[2018-10-29 17:07] LABS: Troponin I 0.012 ng/mL (< 0.028)
[2018-10-29] MEDS ORDERED: Metoprolol Tartrate 50 MG TAB ONE (20:24)
[2018-10-29 20:55] LABS: Troponin I 0.012 ng/mL (< 0.028)
[2018-10-29] MEDS ORDERED: Metoprolol Tartrate 25 MG TAB PO SCH (21:00)
[2018-10-29 21:14] VITALS: BMI 31.8
[2018-10-29] MEDS ORDERED: Bisacodyl 5 MG TAB PO PRN (21:22)
[2018-10-29] MEDS ORDERED: Calcium Carbonate 500 MG ChewTAB PO PRN (21:22)
[2018-10-29] MEDS ORDERED: Senokot S 8.6-50 MG TAB PO PRN (21:22)
[2018-10-29] MEDS ORDERED: Ondansetron PF 4 MG/2 ML Vial IVP PRN (21:22)
[2018-10-29] MEDS ORDERED: Acetaminophen 325 MG TAB PO PRN (21:22)
[2018-10-29] MEDS ORDERED: Ondansetron ODT 4 MG TAB PO PRN (21:22)
[2018-10-29] MEDS ORDERED: hydrALAZINE 20 MG/ML VIAL SLOW IVP PRN (21:26)
[2018-10-29] MEDS ORDERED: Nicotine 21 MG PATCH TD SCH (21:30)
[2018-10-29] MEDS: NS 0.9% w/ 20 MEQ KCL 1,000 ML/1,000 ML BAG IV SCH (22:16)
[2018-10-29] MEDS: Potassium Chloride 20 MEQ in Premix Bag 1 BAG IVPB SCH (22:35)
[2018-10-30 05:38] LABS: ALT (SGPT) 51 U/L (8-55); AST (SGOT) 54 U/L (5-34); Alkaline Phosphatase 73 U/L (40-150); Anion Gap 17 mmol/L (10-20); BUN (Urea Nitrogen) 4 mg/dL (8.4-25.7); Bilirubin, Total 1.5 mg/dL (0.2-1.2); Calc. Creatinine Clearance 173 mL/min (70-130); Calcium 8.3 mg/dL (7.8-10.44); Carbon Dioxide 19 mmol/L (22-29); Chloride 100 mmol/L (98-107); Estimated GFR-MDRD Greater than 90; Globulin 3.5 g/dL (2.4-3.5); Glucose 206 mg/dL (70-105); Magnesium 1.8 mg/dL (1.6-2.6); Potassium 3.4 mmol/L (3.5-5.1); Protein, Total 7.5 g/dL (6.0-8.3); Sodium 133 mmol/L (136-145)
[2018-10-30 05:39] LABS: Phosphorus 1.6 mg/dL (2.3-4.7)
[2018-10-30] MEDS ORDERED: cloNIDine 0.1 MG TAB PO SCH (06:00)
[2018-10-30] MEDS ORDERED: Potassium Phosphate 30 MMOL in Sodium Chloride 0.9% 500 ML IVPB SCH (07:00)
[2018-10-30] MEDS: NS 0.9% w/ 20 MEQ KCL 1,000 ML/1,000 ML BAG IV SCH ×2 (07:46→09:23)
--- NOTE | 2018-10-30 08:03 | HP ---
CHIEF COMPLAINT: Palpitations. HISTORY OF PRESENT ILLNESS: This is a 53-year-old male with past medical history of diabetes mellitus type 2, hyperlipidemia, hypertension, chronic alcoholism, who is presenting with palpitations after waking up this morning on the day of admission. The patient states that he drunk 18 beers the night prior to his admission. The patient stated that he has problem with alcoholism, and he basically just drunk a lot. I was able to actually get the history from the patient by writing on a board, so that the patient can be able to read what I was writing. The patient is a very pleasant gentleman, and he stated that he really wants to quit drinking and I explained to the patient that it is important for him to quit drinking because if he does not stop drinking, it is going to kill him. The patient agrees, and the patient agrees to having foster care case manager helping him find a place where he can be able to get some help. At this point, the patient states that he does not have the palpitation anymore, now he is feeling much better. The patient endorses having some nausea, vomiting during the episode of him having palpitations, but at this time, he does not have all these symptoms anymore. He is feeling much better. The patient denies any chest pain, shortness of breath, diarrhea, palpitations, abdominal pain, dysuria, hematuria. Next review of systems the patient reported palpitation, nausea, vomiting. However, at this time, the patient does not have these symptoms anymore. REVIEW OF SYSTEMS: Twelve-point review of systems was done and is all negative at this time. PAST MEDICAL HISTORY: Type 2 diabetes mellitus, hyperlipidemia, hypertension. PAST SURGICAL HISTORY: No surgical history. PSYCHIATRIC HISTORY: The patient has history of depression. SOCIAL HISTORY: The patient drinks every day. The patient drinks more than 5 drinks per day. The patient drinks 24 pack of beers daily. The patient denies any illicit drug use. The patient admits to smoking. The patient states that he smokes about two packs per day. The patient lives at home alone. ALLERGIES: NO KNOWN DRUG ALLERGIES. CURRENT MEDICATIONS: The patient takes metformin 1000 mg, sertraline 100 mg, aspirin 81 mg, metoprolol, amlodipine, Crestor. PHYSICAL EXAMINATION: VITAL SIGNS: Blood pressure is 175/111, pulse of 123, respiratory rate of 21, O2 saturation of 95. GENERAL: The patient is awake, alert, and oriented x3. The patient has difficulty with hearing. Therefore, the patient communicates by writing on a piece of paper. HEENT: Normocephalic, atraumatic. Pupils are equally round and reactive to light. Extraocular movements are intact. No scleral icterus. No conjunctival pallor. NECK: Midline trachea. Trachea is midline. Full range of motion. Supple. No JVD. LUNGS: Clear to auscultation bilaterally. No wheezing, no rales, no rhonchi appreciated. CARDIAC: Positive S1 and S2. Regular rate and rhythm. No murmurs, no gallops, no rubs appreciated. ABDOMEN: Obese abdomen. Soft, nontender, and nondistended. No masses. No peritoneal signs. EXTREMITIES: The patient has 5/5 upper extremity strength and 5/5 lower extremity strength. NEUROLOGIC: Cranial nerves 2 through 12 grossly intact. No neurologic deficits noted. PSYCH: The patient has normal affect. DIAGNOSTIC DATA: EKG shows sinus tachycardia of a rate of 124. LABORATORY DATA: WBC 12.2. Otherwise other lab values are within normal limits. Chemistry: Sodium is 133, potassium is 3.0, chloride is 95, carbon dioxide of 17, anion gap of 24, BUN is 6, creatinine is 0.87, glucose is 250, magnesium is 0.9, total bilirubin is 1.2. AST is 70, ALT is 62, alkaline phosphatase is 77. Plasma alcohol level was less than 10. ASSESSMENT AND PLAN: This is a 53-year-old male being admitted for, 1. Alcohol withdrawal. At this point, the patient has been started on the COLETTE protocol. We have started the patient on Ativan p.r.n. for agitation and anxiety. We are going to continue the patient on IV hydration. We will monitor the patient closely. We will start the patient on multivitamins. 2. Electrolyte abnormality. The patient does have hypokalemia, hypomagnesemia, hyponatremia. We will replete the patient's electrolytes. 3. Metabolic acidosis, likely due to alcoholism. At this point, we are going to continue supportive management. We will monitor the patient closely. 4. Diabetes mellitus type 2, uncontrolled. At this point, we will start the patient on insulin sliding scale. We will keep the patient's blood sugars between 140 and 180. 5. Hyperlipidemia. We will continue the patient on his home medications. We will continue to monitor the patient. 6. Hypertension. Blood pressure is currently uncontrolled. We will start the patient on p.r.n. IV blood pressure medications to control the patient's blood pressure, and we will monitor the patient's blood pressure closely. 7. Deep vein thrombosis/gastrointestinal prophylaxis. Job ID: [id number]
[2018-10-30] MEDS ORDERED: Rosuvastatin 10 MG TAB PO SCH (09:00)
[2018-10-30] MEDS ORDERED: Lisinopril 20 MG TAB PO SCH (09:00)
[2018-10-30] MEDS ORDERED: Famotidine/PF 20 mg/2ml Vial SLOW IVP SCH (09:00)
[2018-10-30] MEDS ORDERED: Metoprolol Tartrate 25 MG TAB PO SCH ×2 (09:00)
[2018-10-30] MEDS ORDERED: Amlodipine 5 MG TAB PO SCH (09:00)
[2018-10-30] MEDS ORDERED: Famotidine 20 MG TAB PO SCH (09:00)
[2018-10-30] MEDS ORDERED: Folic Acid 1 MG TAB PO SCH (09:00)
[2018-10-30] MEDS ORDERED: Multivit, Therapeutic 1 TAB PO SCH (09:00)
[2018-10-30] MEDS ORDERED: Enoxaparin Sodium 40 MG/0.4 ML SYRINGE SC SCH (09:00)
[2018-10-30 12:24] VITALS: BP 123/68; TEMP 98.8
--- NOTE | 2018-10-30 14:01 | DIS ---
DATE OF ADMISSION: 10/29/2018 DATE OF DISCHARGE: 10/30/2018 PRIMARY CARE PHYSICIAN: Dr. Jeff Lyn. DISCHARGE DIAGNOSES: 1. Acute alcohol intoxication. 2. Alcohol abuse, chronic. 3. Hyponatremia, chronic, secondary to alcohol abuse. 4. Hypokalemia, mild. 5. Diabetes mellitus type 2, labile. 6. Sinus tachycardia secondary to alcohol abuse. 7. Tobacco abuse. CONSULTATIONS: None. PERTINENT LAB AND X-RAY FINDINGS: Sodium 133, potassium ranged between 3.0 to 3.4, lactic acid level 1.6, phosphorus 1.6, magnesium 1.8, AST 54, ALT of 51, and alkaline phosphatase 73. Troponin I negative x2. BNP 37.8. TSH 1.26. CBC showed a white blood cell count of 12.2, hemoglobin 15, hematocrit 44, and platelet count 330, with 81% neutrophils. Beta-hydroxybutyrate level 1.53. Plasma alcohol level less than 10. Portable chest x-ray dated 10/29/2018 showed no acute intracranial process. HOSPITAL COURSE: The patient was admitted to the Telemetry Unit after initially presenting with palpitations in the context of chronic alcoholism with acute intoxication with recent binge drinking up to 18 beers prior to admission. The patient was noted with sinus tachycardia and placed on Ativan and given IV and oral metoprolol. The patient also received IV fluids and given general supportive management in addition to replacement for electrolyte abnormalities including hypophosphatemia and hypokalemia. The patient clinically stabilized and resumed his home metoprolol dosing of 50 mg b.i.d. The patient was counseled regarding alcohol abuse and given resources for alcohol rehabilitation and detoxification options. Overall, the patient has remained clinically stable during the hospital course, tolerating regular oral intake with stable vital signs. I have examined the patient at the time of discharge and discussed followup instructions. The patient understands and ready for discharge on 10/30/2018. DISCHARGE MEDICATIONS: 1. Enteric-coated aspirin 81 mg p.o. daily. 2. Lisinopril 20 mg p.o. daily. 3. Metformin 1000 mg p.o. b.i.d. 4. Metoprolol tartrate 50 mg p.o. b.i.d. 5. Crestor 10 mg p.o. daily. 6. Zoloft 100 mg p.o. daily. 7. Amlodipine 5 mg p.o. daily. 8. Nicotine patch 21 mg transdermally q.24 hours. FOLLOWUP: The patient may follow up with his primary care provider, Dr. Jeff Lyn within 7 days of discharge. CONDITION ON DISCHARGE: Fair. ACTIVITY: Ad-floridalma. DIET: Heart healthy and ADA. CODE STATUS: Full. DISPOSITION: Home on 10/30/2018. TIME SPENT: Total time preparing and coordinating discharge, 33 minutes. Job ID: [id number]
== END 2018-10-30 14:44 | disposition home or self-care (01) | DRG 897 ==
LOC: ERS 10:45 → ERHOLD 16:56 → 2NO 20:39
PROVIDERS: ADMIT Internal Medicine; ATTEND Internal Medicine
DX: F10.239 Alcohol dependence with withdrawal, unspecified (principal); E87.2 Acidosis; E87.1 Hypo-osmolality and hyponatremia; F10.229 Alcohol dependence with intoxication, unspecified; T51.0X1A Toxic effect of ethanol, accidental (unintentional), initial encounter; E83.42 Hypomagnesemia; E11.65 Type 2 diabetes mellitus with hyperglycemia; Z79.84 Long term (current) use of oral hypoglycemic drugs
CPT/HCPCS: 36415; 36416; 71045; 80053; 80307; 82010; 83605; 83735; 83880; 84100; 84443; 84484; 85025; 90471; 90686; 93005; G0008; J0360; J1650; J1815; J2060; J3480; J7050

== ENCOUNTER 2019-04-15 01:43 | Emergency (ER) | payer MEDICARE, OTHER ==
[2019-04-15 03:09] LABS: #Eosinphils 0.2 thou/uL (0.0-0.7); #Lymphocytes 1.1 thou/uL (1.20-3.40); #Monocytes 0.4 thou/uL (0.11-0.59); #Neutrophils 12.9 thou/uL (1.40-6.50); %Basophils 0.2 % (0.0-1.0); %Eosinophils 1.1 % (0.0-10.0); %Lymphocytes 7.3 % (21.0-51.0); %Monocytes 2.9 % (0.0-10.0); %Neutrophils 88.6 % (42.0-75.0); Hemoglobin 14.4 g/dL (14.0-18.0); Mean Corpuscular HGB CONC 34.1 g/dL (32.0-36.0); Mean Corpuscular Hemoglobin 31.7 pg (27.0-31.0); Mean Platelet Volume 8.1 fL (7.4-10.4); Platelet Count 319 thou/uL (130-400); RBC Distribution Width 14.6 % (11.5-14.5); Red Blood Cell (RBC) Count 4.53 mill/uL (4.70-6.10); White Blood Cell (WBC) Count 14.5 thou/uL (4.8-10.8)
[2019-04-15 03:26] LABS: ALT (SGPT) 62 U/L (8-55); AST (SGOT) 77 U/L (5-34); Albumin 3.5 g/dL (3.5-5.0); Alkaline Phosphatase 127 U/L (40-150); Anion Gap 15 mmol/L (10-20); BUN (Urea Nitrogen) 5 mg/dL (8.4-25.7); Bilirubin, Total 1.9 mg/dL (0.2-1.2); Calc. Creatinine Clearance 0 mL/min (70-130); Calcium 9.5 mg/dL (7.8-10.44); Carbon Dioxide 25 mmol/L (22-29); Chloride 93 mmol/L (98-107); Estimated GFR-MDRD Greater than 90; Globulin 4.5 g/dL (2.4-3.5); Glucose 207 mg/dL (70-105); Lipase 61 U/L (8-78); Potassium 3.9 mmol/L (3.5-5.1); Sodium 129 mmol/L (136-145)
[2019-04-15 03:55] LABS: Bilirubin Negative (Negative); Blood, Urine Negative (Negative); Clarity CLEAR (Clear); Glucose, Urine (Dipstick) Negative (Negative); Leukocyte Small (Negative); Nitrite Negative (Negative); Protein, Urine (Dipstick) Negative (Neg-Trace); Specific Gravity, Urine 1.008 (1.002-1.036)
[2019-04-15 03:58] LABS: Bacteria/HPF Rare-Few HPF (None Seen); Hyaline Casts/LPF 0-3 HYALINE CAST LPF (0-3 Hyaline); Pathc Cast-AUWi Flag 0.54 (0-2.49); RBC/HPF 0-3 HPF (0-3); Squamous Epithelial 0-3 HPF (0-3)
[2019-04-15] MEDS ORDERED: Morphine 4 MG/ML VIAL ONE (04:18)
[2019-04-15 07:26] LABS: Lactic Acid 1.4 mmol/L (0.5-2.2)
--- NOTE | 2019-04-15 07:26 | RAD ---
CHEST 1 VIEW: INDICATION: Emergency examination with hallucinations and intoxication. COMPARISON: Prior exam dated 10/19/2018. FINDINGS: There is stable cardiomegaly. No pleural effusion or pneumothorax is evident. No acute osseous abno rmality is evident. IMPRESSION: No acute abnormality. POS: BH
--- NOTE | 2019-04-15 08:00 | CT ---
CT OF THE ABDOMEN AND PELVIS WITHOUT IV CONTRAST: INDICATION: History of alcohol intoxication with back pain and incontinent bowel and bladder. COMPARISON: None. FINDINGS: Lung bases are clear. There is cirrhotic morphology of the liver with severe fatty infiltration. There is marked heterogen eity of the liver. There is a gallstone within the contracted gallbladder. There is splenomegaly me asuring up to 14.1 cm. There is recanalization of the umbilical vein. There is an incompletely characterized 3.5 cm cystic-type lesion involving the left mid kidney. No r enal or ureteral calculus is evident. Unopacified adrenal glands and pancreas are unremarkable-appea ring. There are a few shotty-appearing lymph nodes seen within the retroperitoneum. One of the largest pauline sures .1 cm on image 41 of series 2 within the periaortic region. The IVC appears markedly decompres sed. There are moderate to severe vascular calcifications. There are a few scattered diverticula involving the colon. There is a 9 mm appendicolith seen at the base of the appendix; however, the appendix is normal-appea ring. There are degenerative subchondral cyst-like abnormalities involving the anterior aspect of the right femoral head. No acute fracture is evident. IMPRESSION: 1. Findings of cirrhosis with portal hypertension. 2. Marked heterogeneity of the liver may reflect multiple small regenerative nodules. Would recomme nded appropriate clinical and laboratory screening for any symptoms and sign of hepatocellular malign kameron. Appropriate screening evaluation with an MRI with and without contrast is recommended on a non emergent basis. 3. Cholelithiasis. 4. Hypodensity that cannot be further characterized on this noncontrast CT involving the left mid ki dney. Renal ultrasound may be helpful. 5. Appendicolith at the base of the appendix without evidence of active appendicitis. 6. Colonic diverticulosis. POS: BH
--- NOTE | 2019-04-20 11:34 | EKG ---
Test Reason : Blood Pressure : / mmHG Vent. Rate : 111 BPM Atrial Rate : 111 BPM P-R Int : 122 ms QRS Dur : 088 ms QT Int : 376 ms P-R-T Axes : 086 031 111 degrees QTc Int : 511 ms Sinus tachycardia Nonspecific T wave abnormality Abnormal ECG Confirmed by SETF GALEAS ([id number]), editor farm journal PIERRE DICK ([id number]) on 04/20/2019 11:33:41 AM Referred By: Confirmed By:STEF GALEAS
== END 2019-04-15 08:47 | disposition home or self-care (01) ==
LOC: ERS 01:43
DX: F10.10 Alcohol abuse, uncomplicated (principal); K29.70 Gastritis, unspecified, without bleeding; D72.829 Elevated white blood cell count, unspecified; E86.0 Dehydration; E11.9 Type 2 diabetes mellitus without complications; E78.5 Hyperlipidemia, unspecified; I10 Essential (primary) hypertension; F32.9 Major depressive disorder, single episode, unspecified; F17.210 Nicotine dependence, cigarettes, uncomplicated; Z79.84 Long term (current) use of oral hypoglycemic drugs; Z79.82 Long term (current) use of aspirin; Z79.899 Other long term (current) drug therapy
CPT/HCPCS: 36415; 71045; 74176; 80053; 81003; 81015; 83605; 83690; 84484; 85025; 93005; 96361; 96374; J2270

== ENCOUNTER 2019-04-17 10:04 | Emergency (ER) | payer MEDICARE ==
[2019-04-17] MEDS ORDERED: Multivitamins, Adult 10 ML, Thiamine HCl 100 MG, Folic Acid 1 MG in Dextrose 5 %-0.45 %... IV SCH (10:30)
[2019-04-17 11:10] LABS: #Eosinphils 0.3 thou/uL (0.0-0.7); #Monocytes 0.4 thou/uL (0.11-0.59); #Neutrophils 11.1 thou/uL (1.40-6.50); %Basophils 0.1 % (0.0-1.0); %Eosinophils 2.1 % (0.0-10.0); %Lymphocytes 7.7 % (21.0-51.0); %Monocytes 3.2 % (0.0-10.0); %Neutrophils 86.9 % (42.0-75.0); Hemoglobin 13.4 g/dL (14.0-18.0); Mean Corpuscular HGB CONC 33.8 g/dL (32.0-36.0); Mean Corpuscular Hemoglobin 31.6 pg (27.0-31.0); Mean Corpuscular Volume 93.6 fL (78.0-98.0); Mean Platelet Volume 7.7 fL (7.4-10.4); Platelet Count 333 thou/uL (130-400); RBC Distribution Width 14.7 % (11.5-14.5); Red Blood Cell (RBC) Count 4.25 mill/uL (4.70-6.10); White Blood Cell (WBC) Count 12.8 thou/uL (4.8-10.8)
[2019-04-17 11:34] LABS: ALT (SGPT) 47 U/L (8-55); AST (SGOT) 56 U/L (5-34); Albumin 3.3 g/dL (3.5-5.0); Alcohol Less than 10 mg/dL (Less than 10); Alkaline Phosphatase 122 U/L (40-150); Anion Gap 13 mmol/L (10-20); BUN (Urea Nitrogen) 4 mg/dL (8.4-25.7); Bilirubin, Total 1.1 mg/dL (0.2-1.2); Calc. Creatinine Clearance 0 mL/min (70-130); Carbon Dioxide 27 mmol/L (22-29); Chloride 93 mmol/L (98-107); Estimated GFR-MDRD Greater than 90; Globulin 4.1 g/dL (2.4-3.5); Glucose 167 mg/dL (70-105); Lipase 44 U/L (8-78); Magnesium 1.5 mg/dL (1.6-2.6); Potassium 3.8 mmol/L (3.5-5.1); Protein, Total 7.4 g/dL (6.0-8.3); Sodium 129 mmol/L (136-145)
[2019-04-17] MEDS ORDERED: Magnesium 2 GM/50 ML BAG (IN WATER) ONE (11:49)
[2019-04-18] MEDS ORDERED: Multivitamins, Adult 10 ML, Thiamine HCl 100 MG, Folic Acid 1 MG in Dextrose 5 %-0.45 %... IV SCH (09:00)
--- NOTE | 2019-04-20 15:13 | EKG ---
Test Reason : ABD PAIN Blood Pressure : / mmHG Vent. Rate : 080 BPM Atrial Rate : 080 BPM P-R Int : 156 ms QRS Dur : 080 ms QT Int : 418 ms P-R-T Axes : 037 021 043 degrees QTc Int : 482 ms Normal sinus rhythm Prolonged QT Abnormal ECG Confirmed by EDDIE GALLARDO ([id number]), newspaper editor managing PIERRE DICK ([id number]) on 04/20/2019 3:12:53 PM Referred By: PAULINA Confirmed By:EDDIE GALLARDO
== END 2019-04-17 14:47 | disposition home or self-care (01) ==
LOC: ERS 10:04
DX: E83.42 Hypomagnesemia (principal); F10.10 Alcohol abuse, uncomplicated; E11.9 Type 2 diabetes mellitus without complications; E78.5 Hyperlipidemia, unspecified; I10 Essential (primary) hypertension; F32.9 Major depressive disorder, single episode, unspecified; F17.210 Nicotine dependence, cigarettes, uncomplicated; Z79.82 Long term (current) use of aspirin; Z79.899 Other long term (current) drug therapy
CPT/HCPCS: 80053; 80307; 83690; 83735; 84484; 85025; 93005; 96365; 96366; 96368; J3411; J3475; J7042

== ENCOUNTER 2019-04-20 01:40 | Emergency (ER) | payer MEDICARE ==
[2019-04-20] MEDS ORDERED: Acetaminophen 500 MG TAB ONE (02:04)
[2019-04-20 02:45] LABS: #Eosinphils 0.2 thou/uL (0.0-0.7); #Lymphocytes 1.4 thou/uL (1.20-3.40); #Monocytes 0.4 thou/uL (0.11-0.59); #Neutrophils 9.8 thou/uL (1.40-6.50); %Basophils 0.4 % (0.0-1.0); %Eosinophils 1.6 % (0.0-10.0); %Lymphocytes 11.9 % (21.0-51.0); %Monocytes 3.5 % (0.0-10.0); %Neutrophils 82.6 % (42.0-75.0); Mean Corpuscular HGB CONC 35.1 g/dL (32.0-36.0); Mean Corpuscular Hemoglobin 32.8 pg (27.0-31.0); Mean Corpuscular Volume 93.5 fL (78.0-98.0); Mean Platelet Volume 7.6 fL (7.4-10.4); Platelet Count 259 thou/uL (130-400); RBC Distribution Width 14.6 % (11.5-14.5); Red Blood Cell (RBC) Count 4.26 mill/uL (4.70-6.10); White Blood Cell (WBC) Count 11.9 thou/uL (4.8-10.8)
[2019-04-20 03:05] LABS: ALT (SGPT) 48 U/L (8-55); AST (SGOT) 77 U/L (5-34); Albumin 3.4 g/dL (3.5-5.0); Alkaline Phosphatase 124 U/L (40-150); Anion Gap 18 mmol/L (10-20); BUN (Urea Nitrogen) 5 mg/dL (8.4-25.7); Bilirubin, Total 0.9 mg/dL (0.2-1.2); Calc. Creatinine Clearance 0 mL/min (70-130); Calcium 9.2 mg/dL (7.8-10.44); Carbon Dioxide 24 mmol/L (22-29); Chloride 96 mmol/L (98-107); Estimated GFR-MDRD Greater than 90; Globulin 4.4 g/dL (2.4-3.5); Glucose 80 mg/dL (70-105); Potassium 3.1 mmol/L (3.5-5.1); Protein, Total 7.8 g/dL (6.0-8.3); Sodium 135 mmol/L (136-145)
[2019-04-20] MEDS ORDERED: Potassium Chloride 20 MEQ TAB ONE (03:15)
[2019-04-20 03:35] LABS: Bilirubin Small (Negative); Blood, Urine Negative (Negative); Clarity CLEAR (Clear); Glucose, Urine (Dipstick) Negative (Negative); Leukocyte Negative (Negative); Nitrite Negative (Negative); Protein, Urine (Dipstick) Negative (Neg-Trace); Specific Gravity, Urine 1.013 (1.002-1.036)
--- NOTE | 2019-04-20 07:52 | RAD ---
XR Chest 1 View Portable History: [Fever] Comparison: Radiograph April 15, 2019 Findings: Mild increased right pericardiophrenic fat pad. Lungs are clear. No pneumothorax or effusio n. No acute osseous abnormality. Impression: No acute intrathoracic abnormality.
== END 2019-04-20 06:15 | disposition home or self-care (01) ==
LOC: ERS 01:40
DX: F10.10 Alcohol abuse, uncomplicated (principal); E11.9 Type 2 diabetes mellitus without complications; E78.5 Hyperlipidemia, unspecified; I10 Essential (primary) hypertension; F17.210 Nicotine dependence, cigarettes, uncomplicated; F32.9 Major depressive disorder, single episode, unspecified; Z79.84 Long term (current) use of oral hypoglycemic drugs; Z79.82 Long term (current) use of aspirin; Z79.899 Other long term (current) drug therapy
CPT/HCPCS: 71045; 80053; 81003; 83605; 85025; 87040; 87086; 96360; 96361